=== PATIENT | female | born 1980 | race Caucasian/White ===

== ENCOUNTER 2024-02-03 15:08 | Outpatient (CLI) | payer OTHER, SELFPAY ==
--- NOTE | ~2024-02-03 | US_ITS ---
EXAMINATION: US pelvic complete w TV DATE: 02/03/2024 15:33 INDICATION: Pelvic and perineal pain. TECHNIQUE: Multiple transabdominal and transvaginal sonographic images of the pelvis were obtained. COMPARISON: CT abdomen and pelvis 11/04/2022 FINDINGS: TRANSABDOMINAL ULTRASOUND: The uterus measures 7.0 x 4.9 x 5.9 cm. There is no free fluid in the pelvis. TRANSVAGINAL ULTRASOUND: The endometrial complex measures 12 mm in thickness. The right ovary measures 3.6 x 1.9 x 2.7 cm. The left ovary measures 2.2 x 1.8 x 1.5 cm. There is normal vascular flow in the ovaries. IMPRESSION: 1. Normal pelvis. Reviewed, dictated and finalized at location A. OLOGIC TECHNOLOGIST MAMMOGRAM IMPRESSION: 1. Normal pelvis.
== END 2024-02-03 15:09 | disposition home or self-care (01) ==
LOC: MICIMG 15:08
PROVIDERS: PCP Nurse Practitioner Obstetrics & Gynecology; Visit Provider Nurse Practitioner Obstetrics & Gynecology
DX: R10.2 Pelvic and perineal pain (principal)
CPT/HCPCS: 76830; 76856

== ENCOUNTER 2024-04-16 14:34 | Outpatient (CLI) | payer OTHER, SELFPAY ==
--- NOTE | ~2024-04-16 | MM_ITS ---
EXAMINATION: MM screening wiley BI w makeda HISTORY: Screening TECHNIQUE: Craniocaudal and mediolateral oblique 3-D tomosynthesis images were obtained and synthetic 2-D images were generated. CAD analysis was submitted and interpreted. COMPARISON: No prior mammogram is available for comparison at this institution. BREAST PARENCHYMAL COMPOSITION: Not dense: There are scattered areas of fibroglandular density. FINDINGS: There are asymmetries laterally in both breasts. No discrete mass or suspicious calcificati ons. IMPRESSION: 1. Bilateral breast asymmetries laterally. 2. Additional mammographic views and possible breast ultrasound are recommended. BI-RADS Category 0: Incomplete: Needs additional imaging evaluation. Reviewed, dictated and finalized at location A. E SPECIALIST IMPRESSION: 1. Bilateral breast asymmetries laterally. 2. Additional mammographic views and possible breast ultrasound are recommended . BI-RADS Category 0: Incomplete: Needs additional imaging evaluation.
== END 2024-04-16 14:35 | disposition home or self-care (01) ==
LOC: MICIMG 14:36
PROVIDERS: PCP Nurse Practitioner Obstetrics & Gynecology; Visit Provider Nurse Practitioner Obstetrics & Gynecology
DX: Z12.31 Encounter for screening mammogram for malignant neoplasm of breast (principal); R92.8 Other abnormal and inconclusive findings on diagnostic imaging of breast
CPT/HCPCS: 77063; 77067

== ENCOUNTER 2024-05-03 10:07 | Outpatient (CLI) | payer OTHER, SELFPAY ==
--- NOTE | ~2024-05-03 | MMUS_ITS ---
EXAMINATION: MM diagnostic wiley BI w makeda, US breast BI limited HISTORY: Follow-up breast asymmetries. TECHNIQUE: Additional 3-D tomosynthesis images of the breasts were performed and synthetic 2-D images were generated. CAD analysis was submitted and interpreted. High resolution limited bilateral breast ultrasound was performed. COMPARISON: 04/16/2024 BREAST PARENCHYMAL COMPOSITION: Not dense: There are scattered areas of fibroglandular density. FINDINGS: MAMMOGRAPHIC FINDINGS: There are persistent asymmetries in the upper outer quadrant of both breasts. No discrete mass or arc hitectural distortion. There are no suspicious calcifications. ULTRASOUND: Limited right breast ultrasound: At 10:00, 9 cm from the nipple there is a cyst measuring 8 mm maximu m dimension. At 12:00, 5 cm from the nipple there is a 5 mm cyst. Left breast: At 12:00, 2 cm from the nipple there is a minimally complicated 8 mm cyst. No suspicious masses in either breast to suggest malignancy. IMPRESSION: 1. No evidence for malignancy in either breast. 2. Routine yearly screening mammogram and regular clinical breast examination are recommended. BI-RADS Category 2: Benign finding(s). Reviewed, dictated and finalized at location B. DINGS AND GROUNDS DIRECTOR IMPRESSION: 1. No evidence for malignancy in either breast. 2. Routine yearly screening mammogram and regular clinical breast examination a re recommended. BI-RADS Category 2: Benign finding(s).
--- OUTSIDE RECORDS SUMMARY | 2024-05-03 13:06 | XMS_ITS | Data Portability ---
Author Organization [place] - [facility] [place] [facility] , [employer] [facility] Address [address] [place] [address] Assessment No assessment recorded. Plan of Treatment Reminders Order Date Submit Date Provider Last Modified By Organization Details Last Modified Time Details Appointments None recorded. Lab None recorded. Referral None recorded. Procedures None recorded. Surgeries None recorded. Imaging None recorded. Medication Orders azithromyci n 250 mg tablet 2023 [facility] [address] [place], [address], 11:02:12 albuterol sulfate HFA 90 mcg/actuati on aerosol inhaler 2023 [facility] [address] [place], [address], 4 11:02:13 benzonatate 200 mg capsule 2023 [facility] [address] [place], [address], 11:04:52 Patient TargetsNo targets recorded. Patient Instructions Encounter Date Encounter Id Patient Instructions Last Modified By Organization Details Last Modified Time 03/05/2024 [id number] cough: care instructions [id number] Not available 03/05/2024 11:02:06 Reason for Referral None Reported. Medical Equipment None Reported. Allergies No known drug allergies Medications Name Sig Start Date Stop Date Status Note LastModified by Organization Details LastModified Time azithromycin 250 mg tablet TAKE 2 TABLETS (500 MG) BY ORAL ROUTE ONCE DAILY FOR 1 DAY THEN 1 TABLET (250 MG) BY ORAL ROUTE ONCE DAILY FOR 4 DAYS 12/20/ 2024 active Not Available Not Available Not Avai lable benzonatate 200 mg capsule Take 1 capsule 3 times a day by oral route as needed for 5 days. 2023 active Not Available Not Available Not Avai lable albuterol sulfate HFA 90 mcg/actuatio n aerosol inhaler Inhale 2 puffs every 4-6 hours by inhalation route as needed, for for wheezing or shortness of breath. 2023 active Not Available Not Available Not Avai lable Vitals None Recorded Social History None recorded. Functional Status None recorded. Mental Status None recorded. Family History Nothing Reported. Medical History No medical history recorded. Gynecological HistoryNo gynecological history recorded. Obstetrics History GPAL:G 0 P 0 0 0 0 Past Encounters Encounter ID Performer Location Encounter Start Date Encounter Closed Date Diagnosis/Indication Diagnosis SNOMED-CT Code Diagnosis ICD10 Code Diagnosis Note [id number] MORIAH MCKENNA [facility] [place] [address] [place] [address] 03/05/2024 10:47:57 03/05/2024 17:06:32 Cough 01381610 R05.9 Cough. Whooping cough is most likely as pt has had exposure to it and no recent vaccinatio n. Other DD includes bronchitis , walking pneumonia, etc. Will give azithromyc in to cover for whooping cough. Will also give albuterol to use PRn for mild shortness of breath as well as benzonatat e to use PRn for cough. Discussed supportive care measures and red flag symptoms. Instructed to follow up if symptoms worsen or not improving Health Concerns Section Related Observation LastModified by Organization Detai ls LastModified Time None Recorded Concern Status LastModified by Organization Details LastModified Time None Recorded Advance Directives Directive None Recorded Payers Encounter Date Sequence Insurance Name Policy Number Policy Mallory Covered Member ID Mallory Member ID Guarantor Name 03/05/2024 1 [facility] [id number] Fidelina Jaramillo [id number] Fidelina Jaramillo 03/05/2024 3 *SELF PAY* [id number] Fidelina Jaramillo [id number] Fidelina Jaramillo Notes Date Note Type Note Provider Name and Address Organization Details Recorded Time 03/05/2024 text/html Call connected, patient greeted. Patient name, , telephone number, and location verified verbally with the patient/parent. Telemedicine limitations reviewed, answered all questions the patient had about the telehealth interaction, and verbal consent obtained to treat. Clinician attests they are physically located in the following state at the time of visit: [place]. 43 year old female presents with c/o possible whooping cough. 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 She c/o shortness of breath, frequent harsh cough, post nasal drip, fatigue, chills, low grade fever, burning in the throat and upper airway. Symptoms started fairly suddenly about 3 days ago. She states the shortness of breath is pretty unusual for her and is what makes her thinks it may be whooping cough. She admits she is long overdue for a tdap and believes it was about 12 years ago since she was vaccinated. She denies any significant nasal or sinus congestion, muscle aches, nausea, or diarrhea. MORIAH MCKENNA [address] [place] [address] [address] [place], [address], [facility] - [facility] 03/05/2024 11:35:23 OBGyn Episode No OBEpisode recorded.
== END 2024-05-03 10:08 | disposition home or self-care (01) ==
LOC: ANHIMG 10:11
PROVIDERS: PCP Nurse Practitioner Obstetrics & Gynecology; Visit Provider Nurse Practitioner Obstetrics & Gynecology
DX: R92.8 Other abnormal and inconclusive findings on diagnostic imaging of breast (principal)
CPT/HCPCS: 76642; 77062; 77066; G0279